=== PATIENT | male | born 1950 | race Caucasian/White ===

== ENCOUNTER 2023-06-02 11:25 | Emergency (ER) | payer MEDICARE, OTHER, SELFPAY ==
[2023-06-02 11:27] VITALS: BP 153/89
[2023-06-02 11:46] VITALS: BMI 29.8
[2023-06-02 13:29] VITALS: BP 174/107
[2023-06-02 13:45] LABS: % Basophils 0.4 % (0-2); % Eosinophils 0.9 % (0-6); % Immature Granulocytes 0.4 % (0-0.5); % Lymphocytes 16.5 % (20.5-51.1); % Monocytes 6.8 % (1.7-9.3); Absolute Eosinophils 0.1 10^3/uL (0-0.7); Absolute Lymphocytes 1.3 10^3/uL (1.2-3.4); Absolute Monocytes 0.5 10^3/uL (0.1-0.6); Absolute Neutrophils 5.7 10^3/uL (1.4-6.5); Hematocrit 46.1 % (39.0-52.0); Hemoglobin 15.8 g/dL (13.0-18.0); Mean Corp Hgb Conc. 34.3 g/dL (33.0-37.0); Mean Corpuscular Hgb 31.3 pg (27.0-31.0); Mean Corpuscular Volume 91.5 fL (80.0-94.0); Mean Platelet Volume 10.4 fL (7.4-10.4); Nucleated Red Blood Cells % 0 % (-); Platelet Count 200 10^3/uL (130-400); Red Blood Cell Count 5.04 10^6/uL (4.70-6.10); Red Cell Dist. Width 13.3 % (11.5-14.5); White Blood Cell Count 7.6 10^3/uL (4.8-10.8)
[2023-06-02 13:58] LABS: ALT (SGPT) 27 U/L (0-50); AST (SGOT) 30 U/L (17-59); Albumin 4.3 g/dl (3.5-5.0); Alkaline Phosphatase 69 U/L (38-126); Blood Urea Nitrogen 23 mg/dl (9-20); Calcium 9.9 mg/dl (8.4-10.2); Carbon Dioxide 32 mmol/L (22-30); Chloride 104 mmol/L (98-107); Estimated Creatinine Clearance 80 ml/min; Glucose 96 mg/dl (70-99); Potassium 4.3 mmol/L (3.5-5.1); Sodium 137 mmol/L (135-145); Total Bilirubin 1.6 mg/dl (0.2-1.3); Total Protein 6.9 g/dl (6.3-8.2); eGFR > 60.00
[2023-06-02 14:00] VITALS: BP 161/111
[2023-06-02 14:07] LABS: Urine Albumin 3+ (Neg - Trace); Urine Bilirubin 1+ (Negative); Urine Character Bloody (Clear); Urine Color Red; Urine Glucose Negative (Negative); Urine Ketone Trace (Negative); Urine Leukocyte 1+ (Negative); Urine Nitrite Positive (Negative); Urine Occult Blood 4+ (Negative); Urine Urobilinogen Negative (Neg - 1+); Urine pH 6.5 (5.0-9.0)
--- NOTE | 2023-06-02 14:08 | ED.GENMED ---
History of Present Illness
General
Chief Complaint: Male Genito-Urinary Symptoms
Source: patient
Exam Limitations: none
Time Seen by Provider: 06/02/23 12:57
Nursing documentation reviewed up to this point in time: agreed with
Travel History
Have you had any contact with someone who has COVID-19?: No
Do you have any symptoms of coronavirus? Fever > 100 degrees, chills, cough, shortness of breath, sore throat, loss of taste or smell, muscle aches, or headache?: No
History of Present Illness
History of Present Illness:
see MDM
Past History
Past History
ED Past Medical History: None
ED Past Surgical History: None
Social History
Tobacco: Non-smoker
Alcohol: None
Drug: None
Personal:
Living: with family
Review of Systems
Review of Systems
Allergies reviewed?: Yes
All Other Systems: Not applicable
Phy Exam
Physical Exam
Physical Exam:
GENERAL: Alert , in no apparent distress
EYE: pupils equal and reactive
NECK: Supple
ENT: o/p clr, mmm.
CARDIAC: Regular rate and rhythm .
LUNGS: Clear breath sounds bilaterally, no acute respiratory distress, no wheezes/rales/rhonchi
ABDOMEN: Soft, without focal tenderness, no r/g, no cvat, normal bowel sounds
gu: noraml inspection, no active bleeding, no wounds, no tears, no clots, no testiular pain
NEUROLOGICAL: Alert and oriented, no focal neuro deficits
SKIN: Warm and dry, skin intact.
MUSCULOSKELETAL: mod LE edema with PVD darkening skin chnaes
pulses intact
PSYCH: Normal and appropriate interaction.
Course
Orders/Labs/Results
Orders:
Orders
06/02/23 13:23
CT Abd/pel Without Iv Or Oral Urgent
Comment:
Reason For Exam: hematuria
Bladder Scan- Treatment ONCE
06/02/23 13:30
Complete Blood Count/With Diff Urgent
Comprehensive Metabolic Panel Urgent
Urinalysis Reflex To Culture Urgent
Date Specimen was Collected: 06/02/23
Time Specimen was Collected: 13:24
Urine Microscopic Reflex Cult Urgent
Urine Culture Urgent
CECY Source: U
Specimen Description:
Date Specimen was Collected: 06/02/23
Time Specimen was Collected: 13:
06/02/23 13:40
CBI- Treatment Q1H
Solution: saline
Irrigate to Clear?: Yes
Torres [Torres Placement- Treatment] ONCE
Reason for insertion: Urology Determination
06/02/23 15:07
Add On - Microbiology Urgent
Tests Added?: urine culture
Abnormal Lab Results
06/02/23
13:30
MCH 31.3 H pg
(27.0-31.0)
Lymphocytes % 16.5 L %
(20.5-51.1)
Carbon Dioxide 32 H mmol/L
(22-30)
BUN 23 H mg/dl
(9-20)
Total Bilirubin 1.6 H mg/dl
(0.2-1.3)
Urine Ketones Trace A
(Negative)
Ur Occult Blood Reflex 4+ A
(Negative)
Urine Nitrite (Reflex) Positive A
(Negative)
Urine Bilirubin 1+ A
(Negative)
Leukocyte Esterase Rfl 1+ A
(Negative)
Urine RBC >100 A /HPF
(0-2)
Urine Bacteria (Reflex) Many A
(Negative)
Urine Albumin (Reflex) 3+ A
(Neg - Trace)
06/02/23 13:30
06/02/23 13:30
Vital Signs
Blood pressure: 152/97
Initial and Last Documented VS:
Initial Vital Signs
Temp Pulse Resp BP Pulse Ox
98.2 F 79 16 153/89 98
06/02/23 11:27 06/02/23 11:27 06/02/23 11:27 06/02/23 11:27 06/02/23 11:27
Last Documented Vital Signs
Temp Pulse Resp BP Pulse Ox
98.2 F 79 16 152/97 98
06/02/23 11:27 06/02/23 11:27 06/02/23 11:27 06/02/23 15:15 06/02/23 11:27
Envelope Fold Operator consulted with Physician
Envelope Fold Operator consulted with physician?: Yes
MDM/Problems Addressed
MDM/Problems Addressed:
luciana rogers 73 y/o M with h/o afib on xarelto here for painless gross hematuria today after exercising in the pool for watery therapy; says he did more activity kicking in the water than usual
had 2 episodes painless blood from penis
wasn't even with urinating
felt funny at the tip of his penis
no lacerations known
on exam pt has no tendernessm normnal inspection
UA was grossly thiick blood, no clots; no pain; hg stable, cr normal, ct neg for obstructive uropathy; got cbi and cleared to a light pale pink
dw dr. henry
recommended pulling the torres, d/c home
urine culture pending, no abx for now
likely exercise induced hematuria
pt could develop clot retention so give warnings to return
ct no obstructive uropathy
hg stable
d/w ed attending
hold the xarelto for 2 days
pt is alwasy in a fib
he has held it in the past for proceudres and feels comfortable holding t.
*Critical Care Note
Total Time (30-74mins, 75-104mins- exclusive of procedures): Not Applicable
ED Attending Note
-
Portions of this chart may have been created with voice recognition software.� Occasional wrong word or��sound alike� substitutions may have occurred due to the inherent limitations of voice recognition software.
Discharge Plan
Departure
Patient Disposition: Home (Routine Discharge)
Date of Disposition: 06/02/23
Time of Disposition: 15:14
Patient with high blood pressure during this ER visit?: Yes
Condition: Fair
Covid-19: Not Applicable
Discharge Problem:
Hematuria
Instructions: Blood in the Urine (Hematuria), Adult (DC), BLOOD PRESSURE
Prescriptions:
No Action
furosemide 40 MG tablet
40 mg PO PRN PRN (Reason: swelling)
Xarelto 20 MG tablet
20 mg PO QPM
Referrals:
Reji Gonzales DO [Family Provider] - Follow up in 2-3 days
Kingston Henry MD [Active] - Follow up in 1 week (urology)
Activity Restrictions/Additional Instructions:
YOU HAD BLOOD IN YOUR URINE LIKELY FROM EXERCISE
DRINK WATER
STOP YOUR XARELTO FOR 2 DAYS ONLY
YOU COULD DEVELOP BLEEDING AGAIN
RETURN TO THE ER FOR: CLOTS, INABILITY TO PASS URINE, PAIN, FEVER
OTHERWISE CALL MONDAY AFTERNOON FOR THE RESTULS OF YOUR URINE CULTURE (AFTER 1 PM, I WILL BE HERE)
YOU CAN ALSO CALL UROLOGIST FOR AN APPOINTMENT FOR FOLLOW UP
RETURN FOR ANY CONCERNS
STOP EXERCISE FOR ABOUT A WEEK OR SO
Interventions
Interventions:
*Risk Screen - Suicide Last Done: 06/02/23 11:27
*General Assessment Last Done: 06/02/23 11:27
*Neglect/Abuse Screening Last Done: 06/02/23 11:27
ED- Fall Risk Assessment Last Done: 06/02/23 11:46
*ED COVID-19 Vaccine History Last Done: 06/02/23 11:46
*Nursing Disposition Last Done: 06/02/23 15:18
ED-Male Genitourinary Assessment Last Done: 06/02/23 11:46
Discharge Date and Time
Discharge Date/Time: 06/02/23 15:20
[2023-06-02 14:23] VITALS: BP 162/116
[2023-06-02 14:33] LABS: Urine Mucus Few; Urine Red Blood Cell >100 /HPF (0-2)
[2023-06-02 14:34] LABS: Urine Bacteria Many (Negative); Urine White Cell 0-2 /HPF (0-5)
--- NOTE | 2023-06-02 14:40 | EDRN ---
per Aure IRIZARRY CBI clamped for observation
[2023-06-02 14:47] VITALS: BP 156/83
[2023-06-02 15:00] VITALS: BP 152/95
--- NOTE | 2023-06-02 15:17 | EDRN ---
indwelling catheter removed per Aure IRIZARRY
== END 2023-06-02 15:20 | disposition home or self-care (01) ==
LOC: EMR 11:25
PROVIDERS: Physician Assistant; EMERGENCY PHYSICIAN Emergency Medicine; FAMILY PHYSICIAN Family Medicine
DX: R31.9 Hematuria, unspecified (principal); R03.0 Elevated blood-pressure reading, without diagnosis of hypertension; I48.91 Unspecified atrial fibrillation; M19.90 Unspecified osteoarthritis, unspecified site; Z79.01 Long term (current) use of anticoagulants; Z88.0 Allergy status to penicillin
CPT/HCPCS: 99284; 51798; 51702; 74176; 80053; 81003; 81015; 85025; 87086

== ENCOUNTER → 2023-06-16 19:11 | Outpatient (REF) | payer MEDICARE, OTHER, SELFPAY ==
[2023-06-16 20:10] LABS: Urine Albumin 3+ (Neg - Trace); Urine Bilirubin Negative (Negative); Urine Character Bloody (Clear); Urine Color Red; Urine Glucose Negative (Negative); Urine Ketone Negative (Negative); Urine Leukocyte Negative (Negative); Urine Nitrite Negative (Negative); Urine Occult Blood 3+ (Negative); Urine Specific Gravity 1.015 (<1.030); Urine Urobilinogen Negative (Neg - 1+)
[2023-06-16 20:32] LABS: Urine Red Blood Cell >100 /HPF (0-2)
== END ==
LOC: CLAB 19:11
PROVIDERS: ATTENDING PHYSICIAN Specialist
DX: N39.0 Urinary tract infection, site not specified (principal)
CPT/HCPCS: 81003; 81015; 87086

== ENCOUNTER → 2024-01-05 07:06 | Outpatient (REF) | payer MEDICARE, OTHER, SELFPAY ==
[2024-01-05 09:06] LABS: HDL Cholesterol 65 mg/dl; LDL Cholesterol, Calculated 64 mg/dl; Total Cholesterol 142 mg/dl (50-199); Triglyceride 65 mg/dl (10-149); Very Low Density Lipoprotein 13 mg/dl (0-30)
== END ==
LOC: REG 07:06
PROVIDERS: ATTENDING PHYSICIAN Internal Medicine Cardiovascular Disease; FAMILY PHYSICIAN Family Medicine
DX: E78.2 Mixed hyperlipidemia (principal)
CPT/HCPCS: 36415; 80061

== ENCOUNTER → 2024-01-31 15:10 | Outpatient (REF) | payer MEDICARE, OTHER, SELFPAY ==
[2024-01-31 16:21] LABS: Blood Urea Nitrogen 36 mg/dl (9-20); Calcium 9.9 mg/dl (8.4-10.2); Carbon Dioxide 31 mmol/L (22-30); Chloride 99 mmol/L (98-107); Glucose 108 mg/dl (70-99); Potassium 4.5 mmol/L (3.5-5.1); Sodium 140 mmol/L (135-145); eGFR > 60.00
== END ==
LOC: REG 15:10
PROVIDERS: ATTENDING PHYSICIAN Internal Medicine Cardiovascular Disease; FAMILY PHYSICIAN Family Medicine
DX: I10 Essential (primary) hypertension (principal)
CPT/HCPCS: 36415; 80048

== ENCOUNTER 2024-03-25 19:26 | Inpatient (IN) | payer MEDICARE, OTHER, SELFPAY ==
[2024-03-25] VITALS (14 sets, daily range): BP systolic 125–194; BP diastolic 71–112; BMI 36.3
[2024-03-25 12:54] LABS: % Basophils 0.4 % (0-2); % Eosinophils 0.3 % (0-6); % Immature Granulocytes 0.3 % (0-0.5); % Lymphocytes 16.2 % (20.5-51.1); % Monocytes 7.1 % (1.7-9.3); % Neutrophils 75.7 % (42.2-75.2); Absolute Lymphocytes 1.5 10^3/uL (1.2-3.4); Absolute Monocytes 0.7 10^3/uL (0.1-0.6); Absolute Neutrophils 6.9 10^3/uL (1.4-6.5); Hematocrit 44.9 % (39.0-52.0); Hemoglobin 14.9 g/dL (13.0-18.0); Mean Corp Hgb Conc. 33.2 g/dL (33.0-37.0); Mean Corpuscular Hgb 31.5 pg (27.0-31.0); Mean Corpuscular Volume 94.9 fL (80.0-94.0); Mean Platelet Volume 10.3 fL (7.4-10.4); Nucleated Red Blood Cells % 0 % (-); Platelet Count 185 10^3/uL (130-400); Red Blood Cell Count 4.73 10^6/uL (4.70-6.10); Red Cell Dist. Width 13.5 % (11.5-14.5); White Blood Cell Count 9.1 10^3/uL (4.8-10.8)
[2024-03-25 13:12] LABS: ALT (SGPT) 28 U/L (0-50); AST (SGOT) 33 U/L (17-59); Albumin 4.5 g/dl (3.5-5.0); Alkaline Phosphatase 59 U/L (38-126); Blood Urea Nitrogen 20 mg/dl (9-20); Calcium 10.1 mg/dl (8.4-10.2); Carbon Dioxide 35 mmol/L (22-30); Chloride 101 mmol/L (98-107); Glucose 119 mg/dl (70-99); Potassium 4.2 mmol/L (3.5-5.1); Sodium 144 mmol/L (135-145); Total Bilirubin 1.9 mg/dl (0.2-1.3); eGFR > 60.00
[2024-03-25 13:38] LABS: NT-proBNP 2400 pg/ml; Troponin I 0.099 ng/ml
--- NOTE | 2024-03-25 15:20 | ED.GENMED ---
History of Present Illness
General
Chief Complaint: Breathing Problem
Source: patient
Exam Limitations: none
Time Seen by Provider: 03/25/24 15:19
Nursing documentation reviewed up to this point in time: agreed with
History of Present Illness
History of Present Illness:
74-year-old male with history of A-fib on Xarelto, CHF on Lasix, HTN presents [place], crawling under crawl space, etc. [place] SOB with exertion. Last night he couldn't sleep due to
SOB and just walking in here today had MEDRANO. Feels discomfort up under his ribcage across the upper abdomen. He didn't take his Lasix 60 mg Sat and Sun because he was working. He took it BRONC BREAKER today.
Denies feeling lightheaded/dizzy, denies n/v.
Past History
Past History
ED Past Medical History: Arrthythmia (Afib on Xarelto), CHF and HTN
ED Past Surgical History: Orthopedic, Tonsilectomy and Other (Laminectomy L 2,3,4 01/18/24,)
Social History
Tobacco: Non-smoker
Alcohol: None
Drug: None
Personal:
Living: with family
Employment: Retired
Review of Systems
Review of Systems
Allergies reviewed?: Yes
All Other Systems: ROS reviewed and negative except as documented in HPI and ROS
Constitutional: Denies fever or chills
Respiratory: Reports trouble breathing; Denies cough
Cardiac: Reports chest pain ('discomfort' across upper abdomen); Denies diaphoresis or palpitations
ABD/GI: Denies abdominal pain, nausea, vomiting or diarrhea
: Denies dysuria or difficulty voiding
Musculoskeletal: Reports edema
Skin: Reports other (Stasis color changes both lower extremities)
Neurological: Denies dizzy, headache, weakness or numbness
Phy Exam
Physical Exam
Physical Exam:
GENERAL: No acute distress. A&Ox3.
CONSTITUTIONAL: Afebrile.
EYES: Clear, conjunctivae normal
ENMT: moist mucus membranes, Pharynx nl
RESPIRATORY: Regular respirations, nonlabored, lungs clear.
CARDIOVASCULAR: Regular rate and rhythm, no murmurs, no rubs.
GI: Soft, nontender, normal BS
MUSCULOSKELETAL: Bilateral lower extremity +2-3 edema, moves with ease. Well perfused.
SKIN: Warm, dry, pink, stasis dermatosis discoloration bilateral lower extremities
PSYCH: Normal mood and affect. Well kept, interactive and appropriate
NEUROLOGIC: Awake, alert and oriented. No focal neurological deficits
Scores
Heart Failure Risk
Heart Failure Risk Score: Yes
History of Stroke or TIA: No
History of intubation for respiratory distress: No
Heart rate on ED arrival >/= 110: No
SaO2 <90% on arrival on room air: No
HR >/=110 during 3min walk test (or too ill to perform test): Yes
ECG has acute ischemic changes: No
Urea >/=12mmol/L (BUN 33.6mg/dL): No
Serum CO2>/=35mmol/L: No
Troponin I or T elevated to IA Level (0.4mg/dL): Yes
NT-proBNP >/=5,000ng/L (5,000pg/ml): No
HF Risk Score: 4
Admission Status: HIGH RISK 26.1% Consider SNF treatment or admission to hospital
Course
Orders/Labs/Results
Orders:
Orders
03/25/24 12:30
ECG [Electrocardiogram (*1)] Urgent
Reason for Study: Shortness of Breath
EKG- Treatment ONCE
03/25/24 12:38
Complete Blood Count/With Diff Urgent
Comprehensive Metabolic Panel Urgent
Pro-BNP [NT-proBNP] Urgent
Troponin I Urgent
03/25/24 15:25
EKG [Electrocardiogram (*1)] Urgent
Reason for Study: Shortness of Breath
03/25/24 15:26
EKG- Treatment ONCE
03/25/24 15:28
CXR2 [CR Chest - 2 Views ] Urgent
Comment:
Reason For Exam: short of breath
03/25/24 15:35
Troponin I Urgent
03/25/24 16:57
Furosemide [Lasix] 40 mg IV NOW STA
03/25/24 18:45
Code Status As Directed
Resuscitation Status: Full Code
CARDIOLOGY CONSULT Routine
Consulting Provider: Wilbert Villarreal
Was physician already notified: Yes
Reason for consult: Acute exacerbation of CHF
Bisacodyl [Dulcolax] 10 mg RECTAL [id number] PRN
Docusate W/Senna [Senokot-S] 1 tablet PO BIDPRN PRN
Polyethylene Glycol Powder [Miralax] 17 grams PO DAILYPRN PRN
Head of Bed-Restrictions As Directed
Elevation Level: 30 degress
Intake/ Output As Directed
Frequency: Per unit guidelines
Weight As Directed
Frequency: Daily
Pulse Ox/spot Check [RESP] Routine
Quantity: 1
03/25/24 18:46
Activity As Directed
Activity Level: As Tolerated
Vital Signs As Directed
Frequency: Per unit guidelines
03/25/24 18:59
Metoprolol [Lopressor] 12.5 mg PO ONCE ONE
03/25/24 19:00
Rivaroxaban [Xarelto] 20 mg PO QPM
03/25/24 19:01
HF DIETARY CONSULT Routine
HF EDUCATOR CONSULT Routine
Comment:
Activity As Directed
Activity Level: As Tolerated
Intake/ Output As Directed
Frequency: Per unit guidelines
Patient Education As Directed
Type: CHF folder
Comment: give on admission. Document in Interdisciplinary Education record
Sleep Apnea Assessment by RN As Directed
Comment:
Physician Instructions:
Vital Signs As Directed
Frequency: Other
Additional Instructions:: Q12 or per unit guidelines if more frequent.
Weight As Directed
Frequency: Daily
Type of Scale: Standing Scale
Comment: Daily morning weight. If unable to stand, use balanced bed scale.
Weight As Directed
Frequency: Once
Type of Scale: Standing Scale
Comment: Upon Admission. If unable to stand, use balanced bed scale.
Pulse Ox/cont/shift [RESP] Routine
Quantity: 1
Special Instructions: Daily pulse oximetry at rest. If greater than 92% at rest also obtain pulse oximetry
while ambulating as tolerated.
03/25/24 19:15
Troponin I Q6H
Comment: at admission & every 6 hours x 2 (3 total), ECG to be done with each level
03/25/24 20:00
Acetaminophen [Tylenol] 650 mg PO Q4HWA
03/26/24 01:15
Troponin I Q6H
Comment: at admission & every 6 hours x 2 (3 total), ECG to be done with each level
03/26/24 06:00
Echo 2D MMode Color/Doppler IN AM
Reason for Study: heart failure
Basic Metabolic Panel IN AM
Complete Blood Count/No Diff IN AM
TSH IN AM
03/26/24 07:15
Troponin I Q6H
Comment: at admission & every 6 hours x 2 (3 total), ECG to be done with each level
03/26/24 08:00
Furosemide [Lasix] 40 mg IV DAILY
Lisinopril [Zestril] 10 mg PO DAILY
03/26/24 Dinner
Sodium, 2 Gram
Fluid Restriction: 1500 mL/day (50 oz)
Abnormal Lab Results
03/25/2424
12:38 15:35
MCV 94.9 H fL
(80.0-94.0)
MCH 31.5 H pg
(27.0-31.0)
Absolute Neuts (auto) 6.9 H 10^3/uL
(1.4-6.5)
Absolute Monos (auto) 0.7 H 10^3/uL
(0.1-0.6)
Neutrophils % 75.7 H %
(42.2-75.2)
Lymphocytes % 16.2 L %
(20.5-51.1)
Carbon Dioxide 35 H mmol/L
(22-30)
Glucose 119 H mg/dl
(70-99)
Total Bilirubin 1.9 H mg/dl
(0.2-1.3)
Troponin I 0.099 H* ng/ml 0.102 H* ng/ml
03/25/24 12:38
03/25/24 12:38
Vital Signs
Initial and Last Documented VS:
Initial Vital Signs
Temp Pulse Resp BP Pulse Ox
97.5 F 80 20 194/112 96
03/25/24 12:25 03/25/24 12:25 03/25/24 12:25 03/25/24 12:25 03/25/24 12:25
Last Documented Vital Signs
Temp Pulse Resp BP Pulse Ox
97.5 F 78 20 136/71 95
03/25/24 12:25 03/25/24 18:14 03/25/24 18:14 03/25/24 18:14 03/25/24 18:14
MDM/Problems Addressed
Differential Diagnosis Includes:
CHF, IA
MDM/Problems Addressed:
3:30 PM patient brought back to room
74-year-old male with history of A-fib on Xarelto, CHF on Lasix, HTN presents [place], crawling under crawl space, etc. [place] SOB with exertion. Last night he couldn't sleep due to
SOB and just walking in here today had MEDRANO. Feels discomfort up under his ribcage across the upper abdomen. He didn't take his Lasix 60 mg Sat and Sun because he was working. He took it BRONC BREAKER today.
Denies feeling lightheaded/dizzy, denies n/v.
Afebrile, NAD
No hypoxia.
EKG: afib rate 75, RBBB, Left axis deviation
CBC with no clinically significant abnormality
CMP with no clinically significant abnormality
Troponin mildly elevated at 0.099
BNP 2400
4:30 p.m.
Troponin #2 0.102
EKG #2 unchanged
5:30 PM:
Plan: Admit: CHF, elevated troponin
Hospitalist notified of admission
Patient remains stable
*EKG
EKG Intrepretation Date: 03/25/24
Interpretation: abnormal
Heart Rate: 75
Rate: normal
Rhythm: a-fib
[place]: left axis deviation
QRS Pattern: right bundle branch block
Ischemia: no ischemia
*Critical Care Note
Total Time (30-74mins, 75-104mins- exclusive of procedures): Not Applicable
ED Attending Note
-
Portions of this chart may have been created with voice recognition software.� Occasional wrong word or��sound alike� substitutions may have occurred due to the inherent limitations of voice recognition software.
Discharge Plan
Departure
Patient Disposition: Admit
Date of Disposition: 03/25/24
Time of Disposition: 17:24
Admit to: Telemetry
Presentation/result/management discussed w/ accepting MD/DO: Hospitalist
Condition: Fair
Discharge Problem:
Acute CHF (congestive heart failure), Elevated troponin
Prescriptions:
No Action
furosemide 40 MG tablet
40 mg PO DAILYPRN PRN (Reason: swelling)
Xarelto 20 MG tablet
20 mg PO QPM
lisinopril 10 mg Tablet
10 mg PO DAILY
Referrals:
Reji Gonzales DO [Family Provider] -
Interventions
Interventions:
*Risk Screen - Suicide Last Done: 03/25/24 15:37
*General Assessment Last Done: 03/25/24 15:37
*Neglect/Abuse Screening Last Done: 03/25/24 15:37
*ED COVID-19 Vaccine History Last Done: 03/25/24 15:37
ED- Cardiac Assessment Last Done: 03/25/24 15:30
ED- Pulmonary Assessment Last Done: 03/25/24 15:30
Discharge Date and Time
Print Language: DANISH
[2024-03-25 16:19] LABS: Troponin I 0.102 ng/ml
[2024-03-25] MEDS: LASIX 40 MG IV (17:18)
--- NOTE | 2024-03-25 19:10 | HPS.HSE ---
Addendum entered and electronically signed by Odilon Isaac MD 03/26/24 14:17:
acute on chronic hfpef,ef 54%, nyha class III-IV
-secondary to medication/dietary noncomplaince.
-high bnp, grossly volume overloaded
-iv diuretics
-monitor uop
-follow renal fucntion
-keep K >4
-keep Mg >2
-repeat 2d echo
-would benegit from initiation of sglt2i
--per emporor preserved trial: demonstrated improved m&m
-daily weight
-fluid restrict
-hf diet
typeIImi in the setting of acute chf and MR
-flat trop
-do not trend anyfurther
-monitor on tele
-cards consulted
-if 2d echo with region wma or reduced ef then will likely need ischemic eval
perm afib
-continue anticoagulation
-monitor on tele
Original Note:
Family Physician
-
Family Physician: Reji Gonzales
Chief Complaint
-
Shortness of breath
History of Present Illness
74-year-old male, CODE STATUS full code with past medical history of A-fib, chronic congestive heart failure, hypertension, asthma is about 3 days of shortness of breath with exertion especially when he was working on his house. Could not even
sleep due to shortness of breath and laying down and needed pillows to prop himself up. Did not take his Lasix dose Monday and Monday.
Was given 1 dose of Lasix 40 Mg IV today in the ED.
Medical History
Past Medical History
Past Medical History: Reports Arrhythmia, CHF and HTN
Past Surgical History: Reports Orthopedic (Bilateral knee surgery, back surgery)
Social History
Tobacco: Non-smoker
Alcohol: Occasional
Drug: None
Personal:
Living: With Family
Family History
Family History: Not pertinent
Allergies / Home Medications
Allergies reflects when Allergies were last updated in [facility].
Home Medications with original date entered in [facility]
Allergy/Medication List:
Allergies
Allergy/AdvReac Type Severity Reaction Status Date / Time
Penicillins Allergy Rash Verified 03/25/24 12:28
Home Medications
furosemide 40 mg tablet 40 mg PO DAILYPRN PRN swelling 05/19/21
rivaroxaban 20 mg tablet (Xarelto) 20 mg PO QPM 05/19/21
lisinopril 10 mg tablet 10 mg PO DAILY 03/25/24
Review of Systems
-
History Source: Patient
Constitutional: Reports Weight Gain; Denies Fever or Chills
Respiratory: Reports Trouble Breathing; Denies Cough
Cardiac: Denies Chest Pain, Diaphoresis, Palpitations or Syncope
Abdomen/GI: Denies Abdominal Pain, Nausea, Vomiting, Diarrhea or Constipated
Musculoskeletal: Denies Joint Pain
Neurological: Denies Dizzy, Weakness or Numbness
Physical Exam
Vital Signs
Vital Signs
Temp Pulse Resp BP Pulse Ox
97.5 F 78 20 136/71 95
03/25/24 12:25 03/25/24 18:14 03/25/24 18:14 03/25/24 18:14 03/25/24 18:14
Physical Exam
General: Obese
Respiratory: Crackles (Bilaterally at the base of both lungs)
Cardiac: Murmur (3 out of 6 systolic ejection murmur heard over the right upper sternal border)
GI: Soft, Non Tender, Non Distended, Normal Bowel Sounds and Peg Tube
Musculoskeletal: Edema, Left Lower Extremity and Edema, Right Lower Extremity
Skin: Warm and Dry
Neuro: Awake, Alert, Oriented and AO x 3
Laboratory Results
-
03/25/24 12:38
03/25/24 12:38
Laboratory Results
Total Bilirubin 1.9 mg/dl (0.2-1.3) H 03/25/24 12:38
AST 33 U/L (17-59) 03/25/24 12:38
ALT 28 U/L (0-50) 03/25/24 12:38
Alkaline Phosphatase 59 U/L (38-126) 03/25/24 12:38
Troponin I 0.102 ng/ml H* 03/25/24 15:35
Data Reviewed
-
Medical Tests (Nuc Med, Echo, EKG etc): Image Personally Visualized and interpreted and Discussed with Physician
Lab Data: Labs Reviewed by me and Discussed with Physician
Impression/Plan
-
Acute exacerbation of HFpEF:
-Shortness of breath with bilateral crackles at the lower base of both lungs
-2D echo ordered for the a.m, last echo was in 12/2022.
-Admit to telemetry
-Ins and outs, daily weights, fluid restriction less than 1500 mL, low-sodium less than 2 g diet
-Check BMP in the a.m.
-Ordered IV Lasix 40 Mg, metoprolol 12.5, lisinopril continue 10 Mg, Xarelto for DVT prophylaxis
-BNP 2400, serial troponin elevated
-Cardiology consult placed
Permanent atrial fibrillation:
-No dyspnea, headache, chest pain, dizziness, palpitations
-EKG shows atrial fibrillation with a ventricular rate of 66
-Continue on Xarelto
-Admitted to telemetry
-Heart rate is 78
Hypertension:
-Continue on lisinopril 10 Mg
Full code
[2024-03-25 20:37] LABS: Troponin I 0.106 ng/ml
[2024-03-25] MEDS: XARELTO 20 MG PO (20:42)
--- NOTE | 2024-03-25 22:54 | EDRN ---
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 this SENIOR SYSTEMS PROGRAMMER immediately checked on the pt. the pt was laying in the ER stretcher watching a football game on TV. the pt denies
any chest pain, shortness of breath, dizziness, heart fluttering, palpitations, feelings of passing out, or any other complaints. the pt stated he was completely unaware anything abnormal was going on. this SENIOR SYSTEMS PROGRAMMER printed a rhythm strip of the event
and the ER community product specialist scanned it into the chart. This SENIOR SYSTEMS PROGRAMMER also notified hospitalist Dr Samson and House MAL Limon of above.
[2024-03-25 23:38] LABS: Blood Urea Nitrogen 20 mg/dl (9-20); Calcium 9.7 mg/dl (8.4-10.2); Carbon Dioxide 33 mmol/L (22-30); Chloride 101 mmol/L (98-107); Estimated Creatinine Clearance 99 ml/min; Glucose 109 mg/dl (70-99); Magnesium 2.1 mg/dl (1.6-2.3); Potassium 3.8 mmol/L (3.5-5.1); Sodium 143 mmol/L (135-145); eGFR > 60.00
[2024-03-26] VITALS (10 sets, daily range): BP systolic 136–166; BP diastolic 79–93; PULSE 66–85; O2SAT 95–96; BMI 35.3
[2024-03-26 02:01] LABS: Troponin I 0.111 ng/ml
[2024-03-26 06:46] LABS: Hematocrit 39.8 % (39.0-52.0); Hemoglobin 13.4 g/dL (13.0-18.0); Mean Corp Hgb Conc. 33.7 g/dL (33.0-37.0); Mean Corpuscular Hgb 31.4 pg (27.0-31.0); Mean Corpuscular Volume 93.2 fL (80.0-94.0); Mean Platelet Volume 10.4 fL (7.4-10.4); Platelet Count 156 10^3/uL (130-400); Red Blood Cell Count 4.27 10^6/uL (4.70-6.10); Red Cell Dist. Width 13.2 % (11.5-14.5); White Blood Cell Count 6.9 10^3/uL (4.8-10.8)
[2024-03-26 07:05] LABS: Blood Urea Nitrogen 19 mg/dl (9-20); Calcium 9.5 mg/dl (8.4-10.2); Carbon Dioxide 33 mmol/L (22-30); Chloride 103 mmol/L (98-107); Estimated Creatinine Clearance 99 ml/min; Glucose 102 mg/dl (70-99); Potassium 3.8 mmol/L (3.5-5.1); Sodium 141 mmol/L (135-145); eGFR > 60.00
[2024-03-26 07:07] LABS: Troponin I 0.098 ng/ml
[2024-03-26 07:36] LABS: TSH 1.42 uIU/ml (0.47-4.68)
--- NOTE | 2024-03-26 08:41 | CON.CAR ---
Addendum entered and electronically signed by Anthony Bennett MD 03/26/24 14:45:
I saw and examined the patient.
The Vendor Representatives's note was reviewed and I agree with the note.
Comment: Briefly, 74-year-old man past medical history of heart failure with preserved ejection fraction, mitral regurgitation and chronic atrial fibrillation on Xarelto who presents with several days of worsening dyspnea concerning for
decompensated heart failure. Patient reports skipping a few days of his Lasix in addition to dietary indiscretion over the holiday which may have contributed to heart failure decompensation.
Currently on room air. No obvious pulmonary edema on chest x-ray by my review. Does have mild lower extremity edema but they tell me this is chronic over the course of many years and no worse than his baseline.
Agree with IV Lasix twice daily
Monitor I's/O, daily weight and renal function/electrolytes
Check echo as prior study was approximately a year ago
Atrial fibrillation is permanent
Currently rate controlled off AV sharron blockers
Continue Xarelto
Rest per Katiana Candelaria
Original Note:
Consultation
Consultation Request
Date/Time Consultation Performed: 03/26/24
Requesting Provider: Dr. Ryan Isaac
Performing Provider: Katiana Candelaria PA-C for Dr. Bennett
Reason for Consultation: CHF
Medical History
-
Chief Complaint: SOB
History of Present Illness:
Patient is a 74-year-old male with past medical history of chronic atrial fibrillation on Xarelto therapy, mitral regurgitation, hypertension, hyperlipidemia, chronic diastolic congestive heart failure, history of right lower extremity MRSA
infection, spinal stenosis status post L2-L4 lumbar laminectomy approximately 2 months ago who presents to [facility] due to shortness of breath which she states worsened over the weekend. He reports in the setting of his recent back
surgery he has been doing water therapy and he was doing well over the last week in terms of his breathing. He had several salty meals in the setting of family Thanksgiving celebrations and then over the weekend was down at [place] in
[place] [facility] the home. He reports while he was [place] [facility] [place] not take Lasix. He reports noting abdominal bloating and orthopnea resulting in him coming to the emergency room last evening. He had been on Lasix 40 mg daily as needed,
however more recently has been taking this daily as directed by Dr. Frankel. ProBNP 2400. No CP.
PMH:
Chronic diastolic congestive heart failure
Chronic atrial fibrillation
Chronic Xarelto therapy
Mild to moderate MR by echo 12/2022
Hypertension
Hyperlipidemia
History of asthma
History of right lower extremity MRSA infection
Spinal stenosis status post L2-L4 lumbar laminectomy ~12/2023
Past Medical History
Past Medical History: Other (in HPI)
Social History
Tobacco: Non-Smoker
Alcohol: Occasional
Personal:
Living: With Family
Employment: Retired
Family History
Family History: CAD (Father)
Allergies / Home Medications
Allergy/AdvReac Type Severity Reaction Status Date / Time
Penicillins Allergy Rash Verified 03/25/24 12:28
�Medication �Instructions �Recorded �Confirmed �Type
furosemide 40 mg tablet 40 mg PO DAILYPRN PRN swelling 05/19/21 03/25/24 History
rivaroxaban 20 mg tablet (Xarelto) 20 mg PO QPM 05/19/21 03/25/24 History
lisinopril 10 mg tablet 10 mg PO DAILY 03/25/24 03/25/24 History
Review of Systems
-
History Source: Patient
All other systems: Negative unless noted
Physical Exam
Vital Signs
Temp Pulse Resp BP Pulse Ox
97.5 F 61 19 145/86 93
03/25/24 12:25 03/26/24 06:27 03/26/24 06:27 03/26/24 06:27 03/26/24 06:30
Lab Results
03/26/24 06:29
03/26/24 06:29
Troponin I 0.098 ng/ml H* 03/26/24 06:29
Jsd-U-Cmpdiapaosy Pept 2400 pg/ml 03/25/24 12:38
Physical Exam
General: No Apparent Distress, Comfortable and Other (some conversational dyspnea)
HEENT: Normocephalic, Anicteric and Moist Mucous Membranes
Respiratory: Other (decreased BS at bases); Negative Wheezes
Cardiac: S1/S2, Irregular Rhythm and Murmur
GI: Soft, Non Tender, Non Distended and Normal Bowel Sounds
Musculoskeletal: No Clubbing, No Cyanosis and Edema (1+ of B/L LE)
Skin: Warm and Dry
Neuro: AO x 3
Impression / Plan
-
Primary Manager Payer: Dr. Frankel
Assessment:
Presentation with SOB
Acute on chronic diastolic congestive heart failure
Elevated troponin
Chronic atrial fibrillation
Chronic Xarelto therapy
Mild to moderate MR by echo 12/2022
Hypertension
Hyperlipidemia
History of asthma
History of right lower extremity MRSA infection
Spinal stenosis status post L2-L4 lumbar laminectomy ~12/2023
Lexiscan nuclear stress test 2016: Normal perfusion imaging, EF 62%
ECHO 12/29/2022: EF 54%, stage I diastolic dysfunction, severely dilated right atrium, mild to moderate eccentric MR, mild TR, PAP 38 mmHg
Plan:
-Patient presents with shortness of breath after several recent salty meals, and noncompliance with Lasix over the weekend, consistent with acute on chronic diastolic congestive heart failure exacerbation. Chest x-ray without acute cardiopulmonary
process. Patient feels as though most of swelling is in abdomen
-Continue IV Lasix 40 mg twice daily. Prior to admission diuretic dosing over the last several months has been increased from as needed to 40 mg daily
-Repeat echo, last from 12/2022 with results as above. Had mild to moderate eccentric MR at that time
-CHF education. Patient states he does not weigh himself daily at home. We discussed importance of this
-Continue outpatient lisinopril. Follow blood pressures
-Remains in rate controlled permanent atrial fibrillation. Continue Xarelto
-Troponin peaked at 0.110 and trending down. No reports of chest pain. EKG A-fib with chronic right bundle branch block. Last stress test from 2015 with results as above. Suspected troponin elevation due to nonischemic myocardial injury in the
setting of acute CHF and known MR. Would consider for ischemic evaluation, likely OP
-check CVE. not on statin as OP.
Data Reviewed
-
EKG: Tracing Personally Visualized and interpreted
Radiology: Report Reviewed by me
Medical Tests (Nuc Med, Echo etc): Report Reviewed by me
Labs: Labs Reviewed by me
Old Records: Reviewed
[2024-03-26] MEDS: ZESTRIL 10 MG PO (09:13)
[2024-03-26] MEDS: LASIX 40 MG IV ×2 (09:26→18:23)
[2024-03-26 10:32] LABS: HDL Cholesterol 56 mg/dl; LDL Cholesterol, Calculated 53 mg/dl; Total Cholesterol 120 mg/dl (50-199); Triglyceride 58 mg/dl (10-149); Very Low Density Lipoprotein 11 mg/dl (0-30)
--- NOTE | 2024-03-26 11:59 | W.PN.HOSP.TC ---
Addendum entered and electronically signed by Odilon Isaac MD 03/26/24 14:17:
acute on chronic hfpef,ef 54%, nyha class III-IV
-secondary to medication/dietary noncomplaince.
-high bnp, grossly volume overloaded
-iv diuretics
-monitor uop
-follow renal fucntion
-keep K >4
-keep Mg >2
-repeat 2d echo
-would benegit from initiation of sglt2i
--per emporor preserved trial: demonstrated improved m&m
-daily weight
-fluid restrict
-hf diet
typeIImi in the setting of acute chf and MR
-flat trop
-do not trend anyfurther
-monitor on tele
-cards consulted
-if 2d echo with region wma or reduced ef then will likely need ischemic eval
perm afib
-continue anticoagulation
-monitor on tele
Original Note:
Today's Communication/Plan
-
- continue iv lasix 40 mg a day bid
- echo pending
- Follow cardiology
- Daily weights, In and outs, fluid restriction, 2g sodium restriciton diet
- Trend creatinine level
- Continue to monitor on tele
Assessment / Plan
Assessment / Plan
Acute exacerbation of HFpEF:
-Shortness of breath with bilateral crackles at the lower base of both lungs
-2D echo still pending, last echo was in 12/2022.
-Admitted to telemetry
-Ins and outs today fluid balance -550 ml, daily weights not yet checked, fluid restriction less than 1500 mL, low-sodium less than 2 g diet
-BMP normal, Creatinine 1.0
-Continue IV Lasix 40 Mg BID, , lisinopril continue 10 Mg, Xarelto for DVT prophylaxis
-BNP 2400, latest troponin is peaked at .110 and trending down
-Cardiology consult placed
Permanent atrial fibrillation:
-No dyspnea, headache, chest pain, dizziness, palpitations
-EKG last night shows atrial fibrillation with a ventricular rate of 66
-Continue on Xarelto
-Admitted to telemetry
-Heart rate is 68 today
Hypertension:
- 143/84 today
-Continue on lisinopril 10 Mg
Full code
Anticipated Discharge: 24 - 48 hours
Subjective/Interval History
-
Date of Service: March 26, 2024
Patient had a brief episode of elevated heart rate yesterday, EKG was performed and showed atrial fibrillation, otherwise stable.
Objective Data
-
Labs:
Laboratory Results
03/26/24
06:29
WBC 6.9
Hgb 13.4
Hct 39.8
Plt Count 156
Sodium 141
Potassium 3.8
Chloride 103
Carbon Dioxide 33 H
BUN 19
Creatinine 1.0
Glucose 102 H
Calcium 9.5
Vital Signs:
Vital Signs
Temp Pulse Resp BP Pulse Ox
98.9 F 68 19 143/84 95
03/26/24 09:00 03/26/24 11:45 03/26/24 11:45 03/26/24 09:27 03/26/24 11:45
I&O
03/25/24 03/26/24 03/27/24
06:59 06:59 06:59
Output Total 550 / 550
Balance -550 / -550
Review of Systems
-
Constitutional: Denies Fever or Chills
Respiratory: Reports Wheezing; Denies Cough or Trouble Breathing
Cardiac: Denies Chest Pain, Diaphoresis, Palpitations, Syncope, PND or Orthopnea
Abdomen/GI: Denies Abdominal Pain, Nausea, Vomiting, Diarrhea or Constipated
Genitourinary: Denies Dysuria
Musculoskeletal: Denies Joint Pain
Physical Exam
-
General: Obese
Respiratory: Crackles (Bilaterally both lung bases)
Cardiac: Murmur (3 out of 6 systolic ejection murmur heard at the left fifth midclavicular line radiating to the axilla)
GI: Soft, Nontender, Nondistended and Normal Bowel Sounds
Musculoskeletal: Edema, Right Lower Extrem and Edema, Left Lower Extrem
Skin: Warm and Dry
Neuro: Awake, Alert, Oriented and AO x 3
Data Reviewed
-
Medical Tests (Nuc Med, Echo etc): Image personally visualized and interpreted and Discussed with Physician
Labs: Labs Reviewed by me and Discussed with Physician
[2024-03-26] MEDS: XARELTO 20 MG PO (18:24)
[2024-03-27] MEDS: ROBITUSSIN 200 MG PO (02:10)
--- NOTE | 2024-03-27 02:18 | PTCARENOTE ---
Pt stated,'I'm having this dry cough and it is waking me up?'.ARIANA Fang TT on above note,Robitussin 200mg po ordered X1 and administered @0210.
[2024-03-27 03:15] VITALS: BP 134/83
--- NOTE | 2024-03-27 05:36 | PTCARENOTE ---
Pt's tele monitor at baseline is Afib w/BBC;rate ranging 50-60 /minute.While sleeping,pt's heart rate on occasion will drop to 39-41 beats/min for a few seconds and come right up.Pt denies SOB/CP and is usually sleeping while it
happens.V/stable.@0324;Instructed ARIANA Gaspar,via TT, on above note.
[2024-03-27 06:00] VITALS: BMI 35.0
[2024-03-27 06:29] LABS: Hematocrit 38.8 % (39.0-52.0); Hemoglobin 13.2 g/dL (13.0-18.0); Mean Corpuscular Hgb 31.7 pg (27.0-31.0); Mean Corpuscular Volume 93.3 fL (80.0-94.0); Mean Platelet Volume 10.5 fL (7.4-10.4); Platelet Count 146 10^3/uL (130-400); Red Blood Cell Count 4.16 10^6/uL (4.70-6.10); Red Cell Dist. Width 13.2 % (11.5-14.5); White Blood Cell Count 7.8 10^3/uL (4.8-10.8)
[2024-03-27 06:58] LABS: ALT (SGPT) 22 U/L (0-50); AST (SGOT) 23 U/L (17-59); Albumin 3.4 g/dl (3.5-5.0); Alkaline Phosphatase 48 U/L (38-126); Blood Urea Nitrogen 21 mg/dl (9-20); Calcium 9.3 mg/dl (8.4-10.2); Carbon Dioxide 33 mmol/L (22-30); Chloride 101 mmol/L (98-107); Estimated Creatinine Clearance 89 ml/min; Glucose 100 mg/dl (70-99); Magnesium 2.1 mg/dl (1.6-2.3); Sodium 142 mmol/L (135-145); Total Protein 5.8 g/dl (6.3-8.2); eGFR > 60.00
[2024-03-27 08:17] VITALS: BP 120/64
[2024-03-27] MEDS: ZESTRIL 10 MG PO (08:21)
[2024-03-27] MEDS: LASIX 40 MG IV ×2 (08:21→17:20)
--- NOTE | 2024-03-27 09:45 | PN.CDI ---
CDI
- -
CDI:
Physician Documentation Request
Admit Date: 03/25/24 19:26
Dear Doctor Dora,
Patient is admitted with acute on chronic heart failure. Troponin noted to be elevated.
Hospitalist progress note states 'typeIImi in the setting of acute chf and MR'
Cardiology note 'Troponin peaked at 0.110 and trending down. No reports of chest pain. EKG A-fib with chronic right bundle branch block. Last stress test from 2016 with results as above. Suspected troponin elevation due to nonischemic myocardial
injury in the setting of acute CHF and known MR.'
In an attempt to clarify potentially conflicting documentation, please clarify the etiology of the elevated troponin:
Non ischemic myocardial injury
Type II DC demand ischemia
Other
Use of terms such as suspected, likely, concern for, or probable (associated with a specific diagnosis that is being evaluated, monitored, or treated as if it exists) are acceptable and can be coded in the inpatient setting, when documented at the
time of discharge.
Thank you,
Luisa Crabtree RN, BSN
CDI Specialist
tiger text
Please use your independent medical judgment in providing your response.
--- NOTE | 2024-03-27 10:58 | CM ---
Met with patient at bedside; initial assessment completed
IMM benefit explained, form signed @ 1050
Pharmacy verified: [facility]; [address] [facility]
Patient lives w/ in a multilevel home; 1 step to enter; 12-13 steps between floors; railings present; powder room 1st floor; his bed and bath on 2nd floor
DME: none
NO SNF or recent home health utilization history
Reported he had back surgery 2 months ago and goes to [facility] for Outpatient Therapy
Family member will provide transport home
Plan: discharge to home when medically stable; no needs; plans to resume Outpatient PT
--- NOTE | 2024-03-27 11:04 | W.PN.CARDCBS ---
Addendum entered and electronically signed by Anthony Bennett MD 03/27/24 17:34:
I saw and examined the patient.
The Car Repossessor's note was reviewed and I agree with the note.
Comment: 74-year-old man past medical history of heart failure with preserved ejection fraction fibrillation on Xarelto presenting with decompensated heart failure.
With IV Lasix he is symptomatically improved
Plan to transition to oral diuretics tomorrow
Would discharge on p.o. Lasix 40 mg daily and Aldactone 12.5 mg daily
Reviewed salt/fluid restriction and importance of daily weights as well as additional as needed Lasix dosing
We will sign off
Outpatient cardiology follow up arranged
Check BMP 1-2 weeks
Gen: NAD, AAOx3
HEENT: NC/AT, sclera anicteric
Neck: No JVD
CV: RRR, NL s1/s2, 2/6 HSM at the apex, 2/6 POLLY at the base
Lungs: CTAB
Abd: S/ND
Ext: Trace LE edema, chronic venous stasis changes
Skin: Warm, dry
Neuro: Non-focal
Original Note:
Today's Communication / Plan
-
po lasix 40mg daily
aldactone 12.5mg daily
lisinopril 10mg daily
BMP in 1 week
will arrange OP cardiac follow up
Impression / Plan
-
Primary Independent Contractor: Dr. Frankel
Assessment:
Presentation with SOB
Acute on chronic diastolic congestive heart failure
Elevated troponin
Chronic atrial fibrillation
Chronic Xarelto therapy
Mild to moderate MR by echo 12/2022
Hypertension
Hyperlipidemia
History of asthma
History of right lower extremity MRSA infection
Spinal stenosis status post L2-L4 lumbar laminectomy ~12/2023
Lexiscan nuclear stress test 2016: Normal perfusion imaging, EF 62%
ECHO 12/29/2022: EF 54%, stage I diastolic dysfunction, severely dilated right atrium, mild to moderate eccentric MR, mild TR, PAP 38 mmHg
ECHO 03/26/24: EF 70 to 75%, moderate concentric LVH, severely dilated bilateral atria, posterior mitral valve prolapse present with moderate eccentric MR, mild TR, PAP 60 mmHg, trace SC, dilated aortic root, IVC mildly dilated
Plan:
-weight trending down if accurate. patient feels improved. will transition patient to po lasix 40mg daily. encouraged compliance with lasix and following weights daily at home
-echo with results as above. EF remains preserved, MR stable
-BP trends overall elevated. continue OP lisinopril and will add aldactone 12.5mg daily.
-BMP in 1 week
-Remains in rate controlled permanent atrial fibrillation. no BB due to relative bradycardia. Continue Xarelto
-Troponin peaked at 0.110 and trending down. No reports of chest pain. EKG A-fib with chronic right bundle branch block. Last stress test from 2015 with results as above. Suspected troponin elevation due to nonischemic myocardial injury in the
setting of acute CHF and known MR. Would consider for ischemic evaluation as OP
-LDL 53.
-will arrange OP cardiac follow up
-d/w nursing
Progress Note - Independent Contractor
Subjective
Date of Service: March 27, 2024
feeling better
Objective
Labs:
03/27/24 06:04
03/27/24 06:04
Labs
Hgb 13.2 g/dL (13.0-18.0) 03/27/24 06:04
Hct 38.8 % (39.0-52.0) L 03/27/24 06:04
Plt Count 146 10^3/uL (130-400) 03/27/24 06:04
Sodium 142 mmol/L (135-145) 03/27/24 06:04
Potassium 4.0 mmol/L (3.5-5.1) 03/27/24 06:04
BUN 21 mg/dl (9-20) H 03/27/24 06:04
Creatinine 1.1 mg/dL (0.7-1.3) 03/27/24 06:04
Glucose 100 mg/dl (70-99) H 03/27/24 06:04
Troponins
03/25/24 03/25/24 03/25/24
12:38 15:35 19:49
Troponin I 0.099 H* 0.102 H* 0.106 H*
03/26/24 03/26/24
01:27 06:29
Troponin I 0.111 H* 0.098 H*
Vital Signs and I&O:
Vital Signs
Temp Pulse Resp BP Pulse Ox
97.6 F 55 18 120/64 94
03/27/24 08:17 03/27/24 08:17 03/27/24 08:17 03/27/24 08:17 03/27/24 08:17
Vital Signs
Temp Pulse Resp BP Pulse Ox
97.6 F 55 18 120/64 94
03/27/24 08:17 03/27/24 08:17 03/27/24 08:17 03/27/24 08:17 03/27/24 08:17
Intake & Output
03/25/24 03/26/24 03/27/24 03/28/24
07:59 07:59 07:59 07:59
Intake Total 480 / 480
Output Total 550 / 550 1800 / 1800
Balance -550 / -550 -1320 / -1320
[2024-03-27 11:56] VITALS: BP 139/81
--- NOTE | 2024-03-27 12:05 | W.PN.HOSP.TC ---
Addendum entered and electronically signed by Odilon Isaac MD 03/27/24 17:03:
acute on chronic hfpef,ef 54%, nyha class III-IV
-secondary to medication/dietary noncomplaince.
-high bnp, grossly volume overloaded
-iv diuretics, plan to convert tomorrow
-monitor uop
-follow renal function
-keep K >4
-keep Mg >2
-repeat 2d echo
-would benefit from initiation of sglt2i
--per emperor preserved trial: demonstrated improved m&m
-daily weight
-fluid restrict
-hf diet
typeIImi in the setting of acute chf and MR
-flat trop
-do not trend anyfurther
-monitor on tele
-cards following
-if 2d echo with region wma or reduced ef then will likely need ischemic eval
perm afib
-continue anticoagulation
-monitor on tele
Original Note:
Today's Communication/Plan
-
- follow up with cardiology
- Monitor heart rate
- Trend weight, I's and O's, fluid restriction
Assessment / Plan
Assessment / Plan
Acute exacerbation of HFpEF
Non ischemic myocardial injury:
-Shortness of breath with bilateral crackles at the lower base of both lungs, swelling in his legs has gone down significantly
-2D echo shows LV ejection fraction of 70-75%, severely dilated left and right atrium, normal left ventricle and systolic function
-Ins and outs today fluid balance -1320 ml, weight is 137 kgs which is almost 5 kgs down from admission , fluid restriction less than 1500 mL, low-sodium less than 2 g diet
-BMP normal, Creatinine 1.1
-Continue IV Lasix 40 Mg BID, , lisinopril continue 10 Mg, Xarelto for DVT prophylaxis
-Cardiology is following
Permanent atrial fibrillation:
-Admitted to telemetry, on 03/27 had heart rate drop down to 38 briefly, will consult cardiology
-No dyspnea, headache, chest pain, dizziness, palpitations
-Continue on Xarelto
-Heart rate is 68 today
Hypertension:
- 139/81 today
-Continue on lisinopril 10 Mg
Full code
Anticipated Discharge: 24 - 48 hours
Subjective/Interval History
-
Date of Service: March 27, 2024
Has a dry cough since yesterday. Currently taking Robitussin which he says helps a lot.
Objective Data
-
Labs:
Laboratory Results
03/27/24
06:04
WBC 7.8
Hgb 13.2
Hct 38.8 L
Plt Count 146
Sodium 142
Potassium 4.0
Chloride 101
Carbon Dioxide 33 H
BUN 21 H
Creatinine 1.1
Glucose 100 H
Calcium 9.3
Total Bilirubin 2.0 H
AST 23
ALT 22
Alkaline Phosphatase 48
Vital Signs:
Vital Signs
Temp Pulse Resp BP Pulse Ox
97.4 F 56 18 139/81 94
03/27/24 11:56 03/27/24 11:56 03/27/24 11:56 03/27/24 11:56 03/27/24 11:56
I&O
03/26/24 03/27/24 03/28/24
06:59 06:59 06:59
Intake Total 480 / 480
Output Total 550 / 550 1800 / 1800
Balance -550 / -550 -1320 / -1320
Review of Systems
-
Constitutional: Denies Fever or Chills
Respiratory: Reports Wheezing; Denies Cough or Trouble Breathing
Cardiac: Denies Chest Pain, Diaphoresis, Palpitations, Syncope, PND or Orthopnea
Abdomen/GI: Denies Abdominal Pain, Nausea, Vomiting, Diarrhea or Constipated
Genitourinary: Denies Dysuria
Musculoskeletal: Denies Joint Pain
Physical Exam
-
General: Obese
Respiratory: Crackles (Bilaterally both lung bases)
Cardiac: Murmur (3 out of 6 systolic ejection murmur heard at the left fifth midclavicular line radiating to the axilla)
GI: Soft, Nontender, Nondistended and Normal Bowel Sounds
Musculoskeletal: Edema, Right Lower Extrem and Edema, Left Lower Extrem
Skin: Warm and Dry
Neuro: Awake, Alert, Oriented and AO x 3
Data Reviewed
-
Medical Tests (Nuc Med, Echo etc): Image personally visualized and interpreted and Discussed with Physician
Labs: Labs Reviewed by me and Discussed with Physician
[2024-03-27] MEDS: ALDACTONE 12.5 MG PO (13:07)
[2024-03-27] MEDS: ROBITUSSIN DM 10 ML PO ×2 (13:14→19:09)
[2024-03-27 15:14] VITALS: BP 136/78
[2024-03-27] MEDS: XARELTO 20 MG PO (17:20)
[2024-03-27 19:54] VITALS: BP 141/72
[2024-03-28 00:09] VITALS: BP 136/81
[2024-03-28] MEDS: ROBITUSSIN DM 10 ML PO ×2 (02:16→09:54)
[2024-03-28 03:35] VITALS: BP 133/83
[2024-03-28 06:18] VITALS: BMI 34.6
[2024-03-28 07:26] VITALS: BP 148/84
[2024-03-28 07:44] LABS: Hematocrit 42.9 % (39.0-52.0); Hemoglobin 14.4 g/dL (13.0-18.0); Mean Corp Hgb Conc. 33.6 g/dL (33.0-37.0); Mean Corpuscular Hgb 31.6 pg (27.0-31.0); Mean Corpuscular Volume 94.3 fL (80.0-94.0); Mean Platelet Volume 10.5 fL (7.4-10.4); Platelet Count 161 10^3/uL (130-400); Red Blood Cell Count 4.55 10^6/uL (4.70-6.10); Red Cell Dist. Width 13.1 % (11.5-14.5); White Blood Cell Count 7.3 10^3/uL (4.8-10.8)
--- NOTE | 2024-03-28 07:49 | W.DCSUMMARY ---
Discharge Summary
Discharge Data
Date of Admission: 03/25/24
Date of Discharge: 03/28/24
-
Pending Results: No
Hospital Course
Discharging Physician : Dr. Odilon Isaac
Disposition : Home
Primary care physician : Dr. Gonzales
Principal Discharge diagnosis : Heart failure with preserved ejection fraction
Chronic Discharge diagnosis : Permanent atrial fibrillation, hypertension
Hospital Course : 74-year-old male, CODE STATUS full code with past medical history of A-fib, chronic congestive heart failure, hypertension, asthma presents with 3 days of shortness of breath with exertion especially when he was working on his
house these past couple of days. Could not even sleep due to shortness of breath and laying down and needed pillows to prop himself up. Did not take his Lasix dose Monday and Monday. On admission he was given 1 dose of Lasix 40 Mg IV. On
admission mild elevation of troponins, 0.102 and 0.106. BNP 2400. Creatinine 1.1, BMP normal. Physical examination, crackling heard at the base of both lungs, shortness of breath, swelling of bilateral lower extremities. Chest x-ray on admission
negative for acute disease of the chest, COPD suggestive finding seen. EKG on admission and throughout hospital course show permanent atrial fibrillation with a ventricular rate between 65 to 75 bpm. He is diagnosed with acute on chronic heart
failure. Patient's weight on admission was 142 kg. He was then given IV Lasix 40 Mg twice daily by cardiology and on discharge his weight was 135.6 kg's which is a drop of almost 7 kg. On 03/28/2024 physical examination shows much improved
respiratory function, decreased crackles in both of the lungs, decreased swelling of the legs and patient feels much better. He is discharged with Lasix 40 mg p.o., Aldactone 12.5 mg daily, and also given a prescription for Jardiance 10 mg.
Patient was also given advice about 2 g sodium restriction diet and 1500 cc fluid restriction.
Permanent atrial fibrillation�patient was observed on telemetry in stable, continue on Xarelto.
Hypertension�patient blood pressure was stable throughout his hospital stay, continue on lisinopril.
Important imaging findings :
Echocardiogram 03/28/2024�
Normal left ventricular size and systolic function.
LV ejection fraction is 70-75% by Morales's method of discs.
Moderate concentric left ventricular hypertrophy.
Normal right ventricular size and function.
Severely dilated left atrium.
Indexed LA volume is severely abnormal (> 48 mL/m2).
Severely dilated right atrium.
Prolapse of the posterior mitral leaflet was present.
Moderate eccentric mitral regurgitation.
Mild tricuspid regurgitation.
Estimated pulmonary artery pressure of 60 mmHg assuming a right atrial pressure
of 8 mmHg.
Trace pulmonic regurgitation.
Normal pericardium without effusion.
Dilated aortic root.
Sinus of Valsalva measures 4.2 cm, sinotubular junction measures 3.8 cm,
ascending aorta measures 3.9 cm.
The IVC is mildly dilated.
EKG 03/26/2024
ATRIAL FIBRILLATION
LEFT AXIS DEVIATION
RIGHT BUNDLE BRANCH BLOCK
ABNORMAL ECG
WHEN COMPARED WITH ECG OF 26-MAR-2024 01:24,
NO SIGNIFICANT CHANGE WAS FOUND
Procedure findings :
Discharge Plan
-
Patient Disposition: Home (Routine Discharge)
Discharge Diagnosis/Procedures: Acute on chronic heart failure with preserved ejection fraction, permanent atrial fibrillation, hypertension
Condition: Good
Diet: 2 Gram Sodium and Restrict fluids to 64 oz
Activity: As tolerated
Driving Restrictions: As prior to admission
Bathing Restrictions: None
Blood Work: BMP in 1 week with PCP
Other Services: PT
Specialty Instructions: Weigh Daily- Call MD for wt gain/loss 3 lbs overnight/5 lbs in 1 week
Instructions: Diastolic Heart Failure (DC), *DCA Heart Failure Instructions
Referrals:
Bushra Gates PA-C [Specified Professional Personl] - 04/02/24 9:20 am (You have a cardiology follow-up appointment at the [facility] office with Dr. Frankel's physician stores assistant, Bushra. Please call with questions)
Reji Gonzales, DO [Family Provider] - in less than 1 week
Additional Discharge Medication Instructions: Patient was also given a script for Jardiance 10 mg once a day, 30 tablets, 1 refill
Prescriptions:
New
spironolactone 25 mg Tablet
12.5 mg PO DAILY Qty: 30 0RF
Continued
lisinopril 10 mg Tablet
10 mg PO DAILY Qty: 30 0RF
Xarelto 20 MG tablet
20 mg PO QPM Qty: 30 0RF
Changed
furosemide 40 MG tablet
40 mg PO DAILY Qty: 30 0RF
Discharge Orders:
Discharge Patient (As Directed); Ordered 03/28/24
Ordered By: Matthew John
Discharge Date and Time
Discharge Date/Time: 03/28/24 15:04
Print Language: [id number]
[2024-03-28 08:08] LABS: Blood Urea Nitrogen 23 mg/dl (9-20); Calcium 9.7 mg/dl (8.4-10.2); Carbon Dioxide 34 mmol/L (22-30); Chloride 99 mmol/L (98-107); Estimated Creatinine Clearance 97 ml/min; Glucose 100 mg/dl (70-99); Potassium 4.4 mmol/L (3.5-5.1); Sodium 140 mmol/L (135-145); eGFR > 60.00
[2024-03-28] MEDS: ALDACTONE 12.5 MG PO (09:14)
[2024-03-28] MEDS: LASIX 40 MG PO (09:14)
[2024-03-28] MEDS: ZESTRIL 10 MG PO (09:15)
[2024-03-28 10:53] VITALS: BP 139/82; BP 139/85; PULSE 78; O2SAT 96
[2024-03-28 11:01] VITALS: BP 139/85
--- NOTE | 2024-03-28 12:24 | CM ---
Met with patient and spouse at bedside
will provide transport home
Plan: Discharge to home today; will resume outpatient physical therapy
--- NOTE | 2024-03-28 12:29 | W.PN.HOSP.TC ---
Addendum entered and electronically signed by Odilon Isaac MD 03/28/24 13:50:
hfpef, acute on chronic ~75%, nyha class II
-started on aldactone
-script for jardiance provided
-continue lasix if 2--3lb weight gain then take adidtionla dose
Original Note:
Today's Communication/Plan
-
- patient discharged today
Assessment / Plan
Assessment / Plan
- Discahrged patient today on 03/28
Acute exacerbation of HFpEF
Non ischemic myocardial injury:
-has slight bilateral crackles at the lower base of both lungs, swelling in his legs has gone down significantly
-2D echo shows LV ejection fraction of 70-75%, severely dilated left and right atrium, normal left ventricle and systolic function
-Ins and outs today fluid balance -1440 ml, weight is 135.6 kgs which is almost 1 kgs down from yesterday , fluid restriction less than 1500 mL, low-sodium less than 2 g diet
-BMP normal, Creatinine 1.0
-Patient transitioned from IV lasix 40 mg bid to 40 mg once daily and Aldactone 12.5 mg, continue lisinopril continue 10 Mg, Xarelto for DVT prophylaxis
- Also gave patient prescription for jardiance 10 mg
-Cardiology outpatient visit in 1-2 weeks
Permanent atrial fibrillation:
-No dyspnea, headache, chest pain, dizziness, palpitations
-Continue on Xarelto
-Heart rate is 73 today
Hypertension:
- 139/85 today
-Continue on lisinopril 10 Mg
Full code
Anticipated Discharge: Today
Subjective/Interval History
-
Date of Service: March 28, 2024
Pt is complaining of cough since the past two days, says he coughed up a bit of green mucous and that he is worried he might have an infection.
Objective Data
-
Labs:
Laboratory Results
03/28/24
07:11
WBC 7.3
Hgb 14.4
Hct 42.9
Plt Count 161
Sodium 140
Potassium 4.4
Chloride 99
Carbon Dioxide 34 H
BUN 23 H
Creatinine 1.0
Glucose 100 H
Calcium 9.7
Vital Signs:
Vital Signs
Temp Pulse Resp BP Pulse Ox
97.8 F 73 17 139/85 96
03/28/24 11:01 03/28/24 11:01 03/28/24 11:01 03/28/24 11:01 03/28/24 11:01
I&O
03/27/24 03/28/24 03/29/24
06:59 06:59 06:59
Intake Total 480 / 480 1560 / 1560
Output Total 1800 / 1800 3000 / 3000
Balance -1320 / -1320 -1440 / -1440
Review of Systems
-
Constitutional: Denies Fever or Chills
Respiratory: Reports Cough and Wheezing; Denies Trouble Breathing
Cardiac: Denies Chest Pain, Diaphoresis, Palpitations, Syncope, PND or Orthopnea
Abdomen/GI: Denies Abdominal Pain, Nausea, Vomiting, Diarrhea or Constipated
Genitourinary: Denies Dysuria
Musculoskeletal: Denies Joint Pain
Physical Exam
-
General: Obese
Respiratory: Crackles (Bilaterally both lung bases)
Cardiac: Murmur (3 out of 6 systolic ejection murmur heard at the left fifth midclavicular line radiating to the axilla)
GI: Soft, Nontender, Nondistended and Normal Bowel Sounds
Musculoskeletal: Edema, Right Lower Extrem and Edema, Left Lower Extrem
Skin: Warm and Dry
Neuro: Awake, Alert, Oriented and AO x 3
Data Reviewed
-
Medical Tests (Nuc Med, Echo etc): Image personally visualized and interpreted and Discussed with Physician
Labs: Labs Reviewed by me and Discussed with Physician
== END 2024-03-28 15:04 | disposition home or self-care (01) | DRG 291 ==
LOC: 3 WEST ACU 19:26
PROVIDERS: Emergency Medicine; Nurse Practitioner Family; Registered Nurse; ADMITTING PHYSICIAN Hospitalist; EMERGENCY PHYSICIAN Emergency Medicine; FAMILY PHYSICIAN Family Medicine; OTHER PHYSICIAN Internal Medicine Cardiovascular Disease
DX: I11.0 Hypertensive heart disease with heart failure (principal); I50.33 Acute on chronic diastolic (congestive) heart failure; I48.21 Permanent atrial fibrillation; J45.909 Unspecified asthma, uncomplicated; I77.810 Thoracic aortic ectasia; I34.0 Nonrheumatic mitral (valve) insufficiency; I45.10 Unspecified right bundle-branch block; Z79.01 Long term (current) use of anticoagulants; Z79.899 Other long term (current) drug therapy; Z88.0 Allergy status to penicillin; Z86.14 Personal history of Methicillin resistant Staphylococcus aureus infection; E78.5 Hyperlipidemia, unspecified; Z82.49 Family history of ischemic heart disease and other diseases of the circulatory system; Z91.148 Patient's other noncompliance with medication regimen for other reason; I5A Non-ischemic myocardial injury (non-traumatic)
CPT/HCPCS: 71046; 80048; 80053; 80061; 83735; 83880; 84443; 84484; 85025; 85027; 87070; 87502; 93005; 93306; 96374; 97166; 97530; 99285

== ENCOUNTER → 2024-04-08 07:45 | Outpatient (REF) | payer MEDICARE, OTHER, SELFPAY ==
[2024-04-08 09:30] LABS: Blood Urea Nitrogen 35 mg/dl (9-20); Calcium 10.3 mg/dl (8.4-10.2); Carbon Dioxide 33 mmol/L (22-30); Chloride 99 mmol/L (98-107); Glucose 94 mg/dl (70-99); Potassium 5.1 mmol/L (3.5-5.1); Sodium 137 mmol/L (135-145); eGFR 56.93
== END ==
LOC: REG 07:45
PROVIDERS: ATTENDING PHYSICIAN Physician Assistant Medical; FAMILY PHYSICIAN Family Medicine
DX: I50.30 Unspecified diastolic (congestive) heart failure (principal)
CPT/HCPCS: 36415; 80048

== ENCOUNTER → 2024-08-13 08:09 | Outpatient (REF) | payer MEDICARE, OTHER, SELFPAY ==
[2024-08-13 09:13] LABS: NT-proBNP 1020 pg/ml
[2024-08-13 09:18] LABS: Blood Urea Nitrogen 29 mg/dl (9-20); Calcium 10.4 mg/dl (8.4-10.2); Carbon Dioxide 31 mmol/L (22-30); Chloride 104 mmol/L (98-107); Glucose 95 mg/dl (70-99); Potassium 5.2 mmol/L (3.5-5.1); Sodium 140 mmol/L (135-145); eGFR > 60.00
== END ==
LOC: REG 08:09
PROVIDERS: ATTENDING PHYSICIAN Internal Medicine Cardiovascular Disease
DX: I50.30 Unspecified diastolic (congestive) heart failure (principal)
CPT/HCPCS: 36415; 80048; 83880

== ENCOUNTER → 2024-08-21 09:00 | Outpatient (REF) | payer MEDICARE, OTHER, SELFPAY | LOC: HWRAD 09:00 | PROVIDERS: ATTENDING PHYSICIAN Specialist; FAMILY PHYSICIAN Family Medicine | DX: R39.9 Unspecified symptoms and signs involving the genitourinary system (principal) | CPT/HCPCS: 76770 ==

== ENCOUNTER → 2025-02-07 15:17 | Outpatient (REF) | payer MEDICARE, OTHER, SELFPAY | LOC: RAD 15:17 | PROVIDERS: ATTENDING PHYSICIAN Nurse Practitioner Family; FAMILY PHYSICIAN Family Medicine | DX: J18.9 Pneumonia, unspecified organism (principal) | CPT/HCPCS: 71046 ==

== ENCOUNTER → 2025-02-28 12:43 | Outpatient (REF) | payer MEDICARE, OTHER, SELFPAY | LOC: HWRAD 12:43 | PROVIDERS: ATTENDING PHYSICIAN Internal Medicine Critical Care Medicine; FAMILY PHYSICIAN Family Medicine; REFERRING PHYSICIAN Internal Medicine Cardiovascular Disease | DX: J41.8 Mixed simple and mucopurulent chronic bronchitis (principal); R06.02 Shortness of breath | CPT/HCPCS: 71250 ==

== ENCOUNTER → 2025-04-10 07:01 | Outpatient (REF) | payer MEDICARE, OTHER, SELFPAY | LOC: RCS 07:01 | PROVIDERS: ATTENDING PHYSICIAN Internal Medicine Critical Care Medicine; FAMILY PHYSICIAN Family Medicine | DX: I27.20 Pulmonary hypertension, unspecified (principal); J41.8 Mixed simple and mucopurulent chronic bronchitis | CPT/HCPCS: 93306 ==

== ENCOUNTER → 2025-04-15 07:48 | Outpatient (REF) | payer MEDICARE, OTHER, SELFPAY | LOC: REG 07:48 | PROVIDERS: ATTENDING PHYSICIAN Internal Medicine Critical Care Medicine; FAMILY PHYSICIAN Family Medicine | DX: J41.8 Mixed simple and mucopurulent chronic bronchitis (principal) | CPT/HCPCS: 87205 ==